=== PATIENT | male | born 1955 | race Caucasian/White ===

== ENCOUNTER 2018-02-17 07:39 | Emergency (ER) | payer OTHER ==
[~2018-02-17] VITALS: Ht 175.3 cm; Wt 65.8 kg
[2018-02-17 07:50] VITALS: BP 132/87
--- NOTE | 2018-02-17 08:42 | Emergency Room Report ---
History of Present Illness General Chief Complaint: Skin Rash/Abscess Source: Patient Present Illness HPI This patient came to ED due to blister inside right lower mouth. History same once years ago and MD lanced and improved. No trauma, no infection, no fever. No other complaint. No ongoing chronic health issues. Allergies: Coded Allergies: PENICILLINS (Verified Allergy, Unknown, 02/17/18) Patient History Past Medical History: none, see triage record Nursing Documentation-[facility] Past Medical History: No History, Except For Review of Systems Constitutional: Denies: fever Eye: Denies: acuity changes Respiratory: Denies: cough, shortness of breath Cardiovascular: Denies: chest pain Gastrointestinal: Denies: nausea, vomiting Skin: Denies: rash Neurological: Denies: headache All Other Systems: negative except mentioned in HPI Physical Exam Vital Signs Date Time Temp Pulse Resp B/P (MAP) Pulse Ox O2 Delivery O2 Flow Rate FiO2 02/17/18 07:40 98.1 48 18 132/87 100 Room Air 98.1 General Appearance: well appearing, no apparent distress Head: normocephalic, atraumatic ENT: hearing grossly normal, normal voice, other - there is a one cm round cyst lower right inside lip. no other abnormality Neck: full range of motion, supple Respiratory: no respiratory distress, speaking full sentences Musculoskeletal: no calf tenderness Neurologic: alert, normal gait Psychiatric: mood/affect normal Skin: no rash Procedures Incision and Drainage Incision and Drainage : Consent: Emergent Site: right lower inside mouth Blade Size: 10 Wound Location: face Wound's Depth, Shape: superficial Wound Length (cm): 1 Wound Explored: clean Splint Applied?: No Patient Tolerated: Well Complications: None Progress about 2 cc clear/cystic fluid easily drained with 10 blade. using a needle it did not drain. Medical Decision Making Diagnostic Impression: Primary Impression: Rash and other nonspecific skin eruption Last Vital Signs Date Time Temp Pulse Resp B/P (MAP) Pulse Ox O2 Delivery O2 Flow Rate FiO2 02/17/18 07:50 98.1 18 132/87 100 Room Air 98.1 02/17/18 07:40 48 Disposition: HOME, SELF-CARE Condition: Stable Referrals: [facility],REFERRING (PCP) Patient Instructions: Vladimir Harkins M.D. Feb 17, 2018 08:41
[2018-02-17 08:50] VITALS: BP 132/87
== END 2018-02-17 08:54 | disposition home or self-care (01) ==
LOC: EMR 08:09
DX: K09.8 Other cysts of oral region, not elsewhere classified (principal); Z88.0 Allergy status to penicillin
CPT/HCPCS: 10060; 99283